=== PATIENT | male | born 1960 | race Caucasian/White ===

== ENCOUNTER → 2020-08-30 15:46 | Outpatient (ROUT) | payer OTHER, SELFPAY ==
[2020-08-30 16:03] LABS: Add Manual Diff / Slide Review NO; Basophils Absolute Auto 0 /uL (0-100); Basophils Percent Auto 0.7 % (0-2); Eosinophils Absolute Auto 100 /uL (0-450); Eosinophils Percent Auto 1.4 % (2-4); Hematocrit 47.6 % (41-53); Hemoglobin 15.4 g/dL (13.5-17.5); Lymphocytes Absolute Auto 1400 /uL (1100-4500); Lymphocytes Percent Auto 22.8 % (25-40); Mean Corpuscular HGB Conc 32.3 % (30-36); Mean Corpuscular Volume 86.6 fL (80-100); Monocytes Absolute Auto 600 /uL (0-900); Monocytes Percent Auto 9.9 % (3-14); Neutrophils Absolute Auto 3900 /uL (1500-7000); Neutrophils Percent Auto 65.2 % (50-75); Platelet Count 216 X10^3/uL (150-400); Red Blood Cell Count 5.49 X10^6/uL (4.5-5.9); Red Cell Distribution Width 13.6 % (11.6-14.8); White Blood Cell Count 5.9 X10^3/uL (4.5-11.0)
[2020-08-30 16:11] LABS: Alanine Aminotransferase 26 IU/L (<50); Albumin 4.8 g/dL (3.5-5.0); Albumin Globulin Ratio 1.5 (1.0-2.8); Alkaline Phosphatase 64 U/L (38-126); Aspartate Aminotransferase 29 IU/L (17-59); BUN Creatinine Ratio 16.4 (6-22); Bilirubin Total 0.5 mg/dL (0.2-1.3); Blood Urea Nitrogen 10 mg/dL (9-20); Calcium 9.9 mg/dL (8.4-10.2); Carbon Dioxide 31 mmol/L (22-32); Chloride 100 mmol/L (98-107); Cholesterol 191 mg/dL (140-199); Estimated Glomerular Filt Rate > 60.0 mL/min (>60); Globulin 3.2 g/dL (1.7-4.1); Glucose 146 mg/dL (70-100); HDL Cholesterol 52 mg/dL (40-60); HEMOLYSIS 20 (0-50); LDL Cholesterol Calculated 117 mg/dL (<100); Potassium 4.8 mmol/L (3.4-5.1); Sodium 138 mmol/L (137-145); Triglycerides 112 mg/dL (35-150)
[2020-08-30 16:14] LABS: C-Reactive Protein Quant < 0.5 mg/dL (<1.0)
[2020-08-30 16:41] LABS: Erythrocyte Sedimentation Rate 1 MM/HR (0-15)
== END ==
PROVIDERS: Visit Provider Physician Assistant
DX: R51.9 Headache, unspecified (principal); E11.9 Type 2 diabetes mellitus without complications; I10 Essential (primary) hypertension; E78.2 Mixed hyperlipidemia
CPT/HCPCS: 80053; 80061; 83036; 85025; 85651; 86140

== ENCOUNTER 2022-05-29 07:53 | Emergency (ER) | payer OTHER, SELFPAY ==
[2022-05-29 08:01] VITALS: BP 124/80; PULSE 88; RESP 16; TEMP 36.9; O2SAT 97; BMI 29.8
--- NOTE | 2022-05-29 08:04 | DI.RAD.S_ITS ---
PROCEDURE: XR FOOT LT MIN 3V INDICATIONS: stepped on uneven ground/heard pop TECHNIQUE: 3 views of the foot were acquired. COMPARISON: None. FINDINGS: Bones: There is a nondisplaced fracture at the base the 5th metatarsal. Soft tissues: No tibiotalar joint effusion. Achilles tendon appears normal. IMPRESSION: Nondisplaced 5th metatarsal base fracture. Dictated by: Neela Zapata M.D. on 05/29/2022 at 8:25 Approved by: Neela Zapata M.D. on 05/29/2022 at 8:26
--- NOTE | 2022-05-29 09:27 | ED_ITS ---
HPI - Extremity Injury (Lower) General Chief Complaint: Extremity Injury, Lower Stated Complaint: Poss broken left foot Time Seen by Provider: 05/29/22 08:33 History of Present Illness HPI Narrative: Patient is a 61-year-old male history of diabetes presenting with right foot pain. States he was at work yesterday wearing shoes when his foot turned in he just twisted. He heard a pop. Has not been walking on it since. Here today for evaluation. He some ibuprofen seems help for pain. Review of Systems Review of Systems Narrative: GENERAL: Denies chills,fever HEENT: Denies throat pain RESPIRATORY: Denies dyspnea, cough, wheezing CARDIOVASCULAR: Denies chest pain, palpitations GASTROINTESTINAL: Denies nausea, vomiting MUSCULOSKELETAL: see HPI SKIN: No rash, no laceration, no pruritus NEUROLOGIC: Denies weakness, dizziness, headache, numbness 8 point review of systems is negative except for those stated above and HPI Exam Initial Vital Signs Initial Vital Signs: Vital Signs Temperature 98.4 F 05/29/22 08:01 Pulse Rate 88 05/29/22 08:01 Respiratory Rate 16 05/29/22 08:01 Blood Pressure 124/80 05/29/22 08:01 Pulse Oximetry 97 05/29/22 08:01 Oxygen Delivery Method 05/29/22 08:01 GENERAL: Alert pleasant 61-year-old CARDIOVASCULAR: peripheral pulses in tact, cap refill <2 sec RESPIRATORY: No respiratory distress, speaks in full sentences without difficulty EXTREMITIES: Normal range of motion, no clubbing or edema. Neurovascularly intact Right foot no significant swelling distal pedal pulse intact mild tenderness lateral foot no obvious bony deformity NEUROLOGICAL: Cranial nerves II through XII grossly intact. Normal gait and speech. SKIN: Warm, dry, no petechiae, no rashes or lesions. Course Orders Ordered: ED Orders 05/29/22 08:04 XR foot LT min 3V Stat Vital Signs Vital signs: Vital Signs - 8 hr 05/29/22 08:01 05/29/22 10:06 Temperature 98.4 F Pulse Rate 88 77 Respiratory Rate 16 16 Blood Pressure 124/80 124/77 Pulse Oximetry 97 97 Oxygen Delivery Method Room Air Room Air MDM - Extremity Injury (Lower) Imaging Data Extremity x-ray #1: Radiologist's Impression: XRay Report Signed Patient: Homero Phillips MR#: [id number] : 1960 Acct:[id number] Age/Sex: 61 / M Date of Service: 05/29/22 Loc: ED Accession Number: [id number] ?? Procedure: XR foot LT min 3V Ordering Provider: Summer Almendarez D.O. PROCEDURE:? XR FOOT LT MIN 3V ? INDICATIONS:? stepped on uneven ground/heard pop ? TECHNIQUE:? 3 views of the foot were acquired.? ? COMPARISON:? None. ? FINDINGS:? ? Bones:? There is a nondisplaced fracture at the base the 5th metatarsal. ? Soft tissues:? No tibiotalar joint effusion.? Achilles tendon appears normal.? ? ? IMPRESSION:? Nondisplaced 5th metatarsal base fracture. ? ? Dictated by: Neela Zapata M.D. on 05/29/2022 at 8:25 ?? MDM Narrative Medical decision making narrative: Patient is found to have 5th metatarsal fracture. Given orthopedic shoe crutches no weight-bearing. Follow up with Orthopedic Discharge Plan Departure Patient Disposition: Home Clinical Impression: Closed fracture of fifth metatarsal bone Instructions: Foot Fracture Activity Restrictions/Additional Instructions: *You have been diagnosed with left 5th metatarsal fracture *What to do: No weight-bearing. Keep shoe on at all times including while sleeping. Elevate and ice as needed. You may require surgery. Please follow- up with orthopedic *Continue to take medications as directed Tylenol 1000 mg every 6 hours if needed for nckm-kf-brzbvmfy pain *Follow up with your primary care provider in 2-3 days or call [phone] Call orthopedic today to schedule follow-up appointment *Return to ER if you should have increased pain swelling or any new, worsening or concerning symptoms Referrals: [facility] [Provider Group] Visit Report Forms: Patient Portal/API
[2022-05-29 10:06] VITALS: BP 124/77; PULSE 77; RESP 16; O2SAT 97
== END 2022-05-29 10:07 | disposition home or self-care (01) ==
PROVIDERS: Emergency Provider Emergency Medicine
DX: S92.355A Nondisplaced fracture of fifth metatarsal bone, left foot, initial encounter for closed fracture (principal); X50.1XXA Overexertion from prolonged static or awkward postures, initial encounter; Y99.0 Civilian activity done for income or pay
CPT/HCPCS: 73630; 99283

== ENCOUNTER 2024-05-19 07:28 | Emergency (ER) | payer OTHER, SELFPAY ==
--- NOTE | 2024-05-19 07:48 | ED.UPPEXIN ---
HPI - Extremity Injury (Upper) General Chief Complaint: Extremity Injury, Upper Stated Complaint: right shoulder injury Time Seen by Provider: 05/19/24 07:29 Source: patient, RN notes reviewed and old records reviewed Mode of arrival: Family Vehicle Limitations: no limitations History of Present Illness HPI narrative: 63-year-old male history of hypertension dyslipidemia diabetes type 2 presents with complaint of injury to his right shoulder while at work. Patient states March 09 he slipped and fell sideways onto his right shoulder with a next to his side. He states he did have some abrasions or cuts at the elbow. Those have since healed. States for has persistent pain can anterior and posteriorly to the shoulder. Can take it through full range of motion worse is when he internally rotates and reaches behind him. Patient also notes sometimes little bit worse when he has his arm up above his head. 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 No numbness tingling or weakness. No other new or recent injuries. States no prior surgeries or injuries to the shoulder itself. He is left-hand dominant. No reported allergies to medications, no tobacco, occasional alcohol, no recreational drugs. 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 He states he had some time off he thought it would improve but it did not has been persistent so he presents for evaluation. Review of Systems Review of Systems ROS Unobtainable: All systems reviewed & are unremarkable except as noted in HPI and below Patient History Social History Smoking Status: Never smoker Exam Narrative Exam Narrative: GENERAL: Alert and oriented x three, male in no acute distress HEENT: Head normocephalic, atraumatic, EOMI, pupils reactive, face symmetric, moist mucous membranes NECK: Supple, full range of motion CARDIOVASCULAR: Regular rate and rhythm without murmurs, rubs or gallops. RESPIRATORY: Breath sounds equal bilaterally, no wheezes rales or rhonchi. ABDOMEN: Soft, nontender. Normoactive bowel sounds all 4 quadrants. No guarding or rebound, rigidity, no mass : No CVA tenderness EXTREMITIES: Normal range of motion, no clubbing or edema. Neurovascularly intact. Patient has some mild tenderness posterior AC joint. Full range of motion. Patient does have increased muscle mass on the left compared to the right but he states that is normal and he is left-hand dominant. Resident In Diagnostic Radiology are equal bilaterally, equal strength with push-pull, 2+ radial pulses. Normal sensation throughout. No bony tenderness otherwise. Patient does not have any tenderness over the biceps tendon. NEUROLOGICAL: Cranial nerves II through XII grossly intact. Moving all extremities SKIN: Warm, dry, no petechiae, no rashes or lesions. Initial Vital Signs Initial Vital Signs: Vital Signs Temperature 97.9 F 05/19/24 08:06 Pulse Rate 73 05/19/24 08:06 Respiratory Rate 18 05/19/24 08:06 Blood Pressure 188/102 H 05/19/24 08:06 Pulse Oximetry 94 05/19/24 08:06 Oxygen Delivery Method Room Air 05/19/24 08:06 Course Orders Ordered: ED Orders 05/19/24 07:58 XR shoulder RT min 2V Stat Vital Signs Vital signs: Vital Signs - 8 hr 05/19/24 08:06 05/19/24 08:25 Temperature 97.9 F Pulse Rate 73 Pulse Rate [Right Radial] 70 Respiratory Rate 18 Blood Pressure 188/102 H Pulse Oximetry 94 Oxygen Delivery Method Room Air MDM - Extremity Injury (Upper) Imaging Data Extremity x-ray #1: Radiologist's Impression: Close Shoulder X-Ray (Signed) Thierry Serrano - 05/19/24 Foot X-Ray (Signed) Neela Zapata - 05/29/22 [place] [address] XRay Report Signed Patient: Homero Phillips MR#: [id number] : 1960 Acct:[id number] Age/Sex: 63 / M Date of Service: 05/19/24 Loc: ED Accession Number: [id number] Procedure: XR shoulder RT min 2V Ordering Provider: Carmen Duran D.O. PROCEDURE: XR SHOULDER RT MIN 2V INDICATIONS: right shoulder pain persisting, fell on it 03/09 TECHNIQUE: 3 views of the shoulder were acquired. COMPARISON: None. FINDINGS: Bones: No fractures or dislocations. Ttdw-oz-dpqtinds osteoarthritic changes are noted in acromioclavicular joint. Mild osteoarthritic changes also seen in glenohumeral joint. No suspicious bony lesions. Visualized ribs appear intact. Soft tissues: No suspicious soft tissue calcifications. IMPRESSION: No acute shoulder fracture or dislocation. Suly-zv-wvihulcd acromioclavicular joint osteoarthritis and mild glenohumeral joint osteoarthritis. Dictated by: Thierry Serrano M.D. on 05/19/2024 at 8:31 Approved by: Thierry Serrano M.D. on 05/19/2024 at 8:32 MDM Narrative Medical decision making narrative: 63-year-old male with injury to his right shoulder proximally 2 months ago which has not improved. Suspect patient may have had rotator cuff tear or possible ligamentous injury. 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 Shoulder x-ray, spoke with the radiologist there is an IT issue with reports crossing over no acute fracture or change. Plan for patient to follow up with Orthopedics as he has had 2 months of persistent pain, may benefit from PT as well. Discharge Plan Departure Patient Disposition: Home Clinical Impression: Injury of right shoulder, Pain in right shoulder Instructions: DI for Shoulder Pain Activity Restrictions/Additional Instructions: Please follow up with Orthopedic surgery and/or primary care. Let them know that this is L and I when you make the appointment. Please return for new or worsening symptoms, new numbness weakness or loss of sensation inability to grasp or hold things or other new or concerning changes. Referrals: Hugo Hook MD [Physician] - Stand Alone Forms: Patient Portal/API
--- NOTE | 2024-05-19 07:58 | DI.RAD.S_ITS ---
PROCEDURE: XR SHOULDER RT MIN 2V INDICATIONS: right shoulder pain persisting, fell on it 03/09 TECHNIQUE: 3 views of the shoulder were acquired. COMPARISON: None. FINDINGS: Bones: No fractures or dislocations. Tuxr-jg-wuckhmwr osteoarthritic changes are noted in acromioclavicular joint. Mild osteoarthritic changes also seen in glenohumeral joint. No suspicious bony lesions. Visualized ribs appear intact. Soft tissues: No suspicious soft tissue calcifications. IMPRESSION: No acute shoulder fracture or dislocation. Rgzm-hn-eajalhgk acromioclavicular joint osteoarthritis and mild glenohumeral joint osteoarthritis. Dictated by: Thierry Serrano M.D. on 05/19/2024 at 8:31 Approved by: Thierry Serrano M.D. on 05/19/2024 at 8:32
[2024-05-19 08:06] VITALS: BP 188/102; PULSE 73; RESP 18; TEMP 36.6; O2SAT 94; BMI 29.8
[2024-05-19 08:25] VITALS: PULSE 70
[2024-05-19 09:12] VITALS: BP 185/91; PULSE 88; RESP 20; TEMP 36.4; O2SAT 100
== END 2024-05-19 09:13 | disposition home or self-care (01) ==
PROVIDERS: Emergency Provider Emergency Medicine
DX: S49.91XS Unspecified injury of right shoulder and upper arm, sequela (principal); M25.511 Pain in right shoulder; W01.0XXD Fall on same level from slipping, tripping and stumbling without subsequent striking against object, subsequent encounter
CPT/HCPCS: 73030; 99281; 99283

== ENCOUNTER → 2024-07-03 15:52 | Outpatient (CLI) | payer OTHER, SELFPAY ==
--- NOTE | 2024-07-03 15:53 | DI.MRI.S_ITS ---
PROCEDURE: MR SHOULDER RT WO CON INDICATIONS: EVALUATE RT SHOULDER PAIN/ROTATOR CUFF TECHNIQUE: Noncontrast oblique coronal T2 fast spin echo with fat saturation, oblique sagittal T1 spin echo and T2 fast spin echo with fat saturation, axial T1 spin echo and T2 fast spin echo with fat saturation through the shoulder. COMPARISON: [facility], CR, XR SHOULDER RT MIN 2V, 05/19/2024, 8:13. [facility] [place], CR, XR SHOULDER 1 VIEW RIGHT, 06/17/2024, 15:46. FINDINGS: Image quality: Excellent. Rotator cuff: Igfc-rk-xliiwabp supraspinatus and infraspinatus tendinosis with mild bursal surface fraying but no significant tearing. Teres minor tendon is intact. There is mild subscapularis tendinosis and suspected low-grade partial articular sided tearing at the superior insertion. The rotator cuff musculature is normal in bulk. Bones and bursae: No acute trabecular bone injury or fracture. Small chronic traction cystic changes are seen in the posterior superior humeral head. Mild degenerative spurring in the glenoid rim and partial-thickness cartilage loss in the glenohumeral joint. Moderate degenerative changes at the acromioclavicular joint with subchondral cystic changes and edema and small marginal osteophytes. Small amount of fluid is seen in the subacromial/subdeltoid bursa. No significant glenohumeral effusion. Capsule and soft tissues: Mild labral degeneration. No acute displaced labral tear is seen. Moderate to severe biceps long head tendinosis and partial intrasubstance tearing. There is partial effacement of fat signal in the rotator interval. Glenohumeral ligaments appear to be intact. IMPRESSION: 1. Crqx-mp-athgosqy supraspinatus and infraspinatus tendinosis with low-grade partial bursal surface fraying. No full-thickness rotator cuff tendon tear. 2. Low-grade partial articular sided tearing at the superior subscapularis insertion superimposed on mild tendinosis. 3. Moderate to severe biceps long head tendinosis and partial intrasubstance tearing. 4. Mild glenohumeral osteoarthrosis. Moderate acromioclavicular osteoarthrosis. 5. Small subacromial/subdeltoid bursal effusion or mild bursitis. Approved by: Asif Lovett M.D. on 07/03/2024 at 20:52
== END ==
PROVIDERS: Referring Provider Orthopaedic Surgery; Visit Provider Orthopaedic Surgery
DX: M19.011 Primary osteoarthritis, right shoulder (principal); S46.111A Strain of muscle, fascia and tendon of long head of biceps, right arm, initial encounter; M25.511 Pain in right shoulder; M75.51 Bursitis of right shoulder
CPT/HCPCS: 73221